=== PATIENT | female | born 1970 | race Caucasian/White ===

== ENCOUNTER → 2020-01-30 | Outpatient (CLI) | payer BC ==
[~2020-01-30] MED LIST: ADDERALL XR20 MG PO; ADIPEX-P37.5 MG PO; ALBUTEROL0.83 MG/ML IH; ATIVAN 1MG T1 MG/TAB PO; B COMPLEX #11 TA1 PO; BIRTH CONTROL; HYDROCODONE/APAP; KLONOPIN 1MG1 MG PO; MIRENA52 MG IU; MOTRIN 600600 MG/TAB PO; MUCINEX 60600 MG/TAB PO; NO HOME MEDICATIONS; PERCOCET 325 MG1 TA2 PO; PHENERGAN 25 TA25 MG PO; PHENERGAN W/CO120 ML PO; PHENERGAN25 MG RC; PREDNISONE20 MG PO; PROAIR; SYMBICORT1 AE1 IH; TYLENOL W/COD1 UDTAB PO; VENTOLIN0.09 MG IH; VICODIN 5/5001 UDTAB PO; VITAMIN B12 1541 TAB PO; VITAMIN D 50,1.25 MG PO; VITAMIND3 5000 PO; ZITHROMAX 250M250 MG PO; ZITHROMAX Z PA250 MG PO
== END ==
LOC: COL.RAD 14:38
DX: G60.3 Idiopathic progressive neuropathy (principal); M21.372 Foot drop, left foot

== ENCOUNTER 2020-02-20 14:58 | Outpatient (CLI) | payer BC ==
[~2020-02-20 14:58] MED LIST changes: -ADDERALL XR20 MG PO; -B COMPLEX #11 TA1 PO; -KLONOPIN 1MG1 MG PO; -VITAMIN B12 1541 TAB PO; -VITAMIN D 50,1.25 MG PO; -VITAMIND3 5000 PO
[2020-02-20 17:45] VITALS: BP 136/74; PULSE 67; TEMP 98.4
--- NOTE | 2020-02-20 17:45 | NUR ---
Report Celia Craig.
== END 2020-02-20 18:42 | disposition home or self-care (01) ==
LOC: EUO 14:58
DX: E55.9 Vitamin D deficiency, unspecified (principal); E51.9 Thiamine deficiency, unspecified; E53.8 Deficiency of other specified B group vitamins; R29.818 Other symptoms and signs involving the nervous system; Z83.2 Family history of diseases of the blood and blood-forming organs and certain disorders involving the immune mechanism; Z90.89 Acquired absence of other organs
CPT/HCPCS: J3411; J3420; J3475; J7030

== ENCOUNTER 2020-02-27 11:14 | Emergency (ER) | payer BC ==
[~2020-02-27] VITALS: Ht 162.6 cm; Wt 84.1 kg
[2020-02-27 11:38] LABS: BASO % 0.4 % (0.0-2.0); EOS # 0.1 (0.0-0.7); EOS % 0.9 % (0-4.0); GRAN # 5.7 (1.4-6.5); GRAN % 85.9 % (42.2-75.2); HEMATOCRIT 44.2 % (37.0-47.0); HEMOGLOBIN 14.8 g/dl (12.5-16.0); LYMPH # 0.7 (1.2-3.4); LYMPH % 10.3 % (20.0-51.0); MEAN CELL VOLUME 92 fl (80.0-100.0); MEAN CORPUSCULAR HEMOGLOBIN 31 pg (27.0-31.0); MEAN CORPUSCULAR HGB CONC 34 g/dl (33.0-37.0); MEAN PLATELET VOLUME 9.1 fl (7.4-10.4); MONO # 0.1 (0.1-0.6); MONO % 2.1 % (1.7-9.3); PLATELET COUNT 311 K/mm3 (130-400); RED BLOOD COUNT 4.83 M/mm3 (4.10-5.30); REDCELL DISTRIBUTION WIDTH-CV 11.9 % (11.5-14.5)
[2020-02-27 11:41] LABS: PROTHROMBIN TIME 11.7 SECONDS (9.7-12.8)
[2020-02-27 11:49] LABS: ALANINE AMINOTRANSFERASE 15 U/L (4-34); ALBUMIN 4.6 gm/dL (3.5-5.0); ALKALINE PHOSPHATASE 81 U/L (50-136); ANION GAP 8 mmol/L (7-16); AST,SGOT 25 U/L (15-37); BILIRUBIN,TOTAL 0.6 mg/dL (0.0-1.0); BLOOD UREA NITROGEN 15 mg/dL (7-17); CALCIUM 9.4 mg/dL (8.4-10.2); CARBON DIOXIDE 28 mmol/L (22-30); CHLORIDE 101 mmol/L (98-107); CREATININE, serum 0.69 (0.52-1.25); GLUCOSE 125 mg/dL (74-106); POTASSIUM 4.3 mmol/L (3.4-5.0); SODIUM 137 mmol/L (137-145); TOTAL PROTEIN 7.8 gm/dL (6.4-8.2)
[2020-02-27] MEDS ORDERED: B COMPLEX #11 TA1 PO (11:59)
[2020-02-27] MEDS ORDERED: VITAMIND3 5000 PO (12:01)
[2020-02-27] MEDS ORDERED: VITAMIN B12 1541 TAB PO (12:02)
[2020-02-27] MEDS ORDERED: ADDERALL XR20 MG PO (12:02)
[2020-02-27 12:03] LABS: TROPONIN-I < 0.012 ng/mL (0.000-0.035)
[2020-02-27] MEDS ORDERED: PREDNISONE20 MG PO (12:03)
[2020-02-27] MEDS ORDERED: VITAMIN D 50,1.25 MG PO (12:04)
[2020-02-27] MEDS ORDERED: KLONOPIN 1MG1 MG PO (12:05)
[2020-02-27 14:33] VITALS: BP 101/56; PULSE 76; TEMP 98.3
== END 2020-02-27 14:33 | disposition home or self-care (01) ==
LOC: COL.ER 11:14
PROVIDERS: Family Medicine
DX: R27.0 Ataxia, unspecified (principal); E86.0 Dehydration; Z87.891 Personal history of nicotine dependence; Z90.89 Acquired absence of other organs
CPT/HCPCS: J3411; J7030